=== PATIENT | female | born 1990 | race Caucasian/White ===

== ENCOUNTER 2022-06-23 10:55 | Emergency (ER) | payer MEDICAID, SELFPAY ==
[2022-06-23] VITALS (11 sets, daily range): BP systolic 112–130; BP diastolic 79–94; PULSE 93–111; RESP 18–37; TEMP 36.5; O2SAT 100
--- NOTE | ~2022-06-23 | XR_ITS ---
EXAMINATION: XR chest 2V 06/23/2022 12:36 INDICATION: Altered mental status PROCEDURE: 2 view chest COMPARISON: No prior studies for comparison. FINDINGS: The lungs are clear. The cardiomediastinal silhouette is within normal limits. There are no pleural effusions. There is no pneumothorax suspected. IMPRESSION: 1: NO ACUTE CARDIOPULMONARY DISEASE. Reviewed, dictated and finalized at location A. TRICAL TROUBLESHOOTER
--- NOTE | ~2022-06-23 | XR_ITS ---
XR thoracic spine 3V 06/23/2022 14:08 Indication: Back pain Procedure: 4 views thoracic spine Comparison: No prior studies for comparison. Findings: Vertebral body heights are maintained. There is mild levoscoliosis. No acute fracture or tr aumatic malalignment. No paraspinal soft tissue abnormality. Impression: 1: No acute abnormality of the thoracic spine. Reviewed, dictated and finalized at location A. MAKER Impression: 1: No acute abnormality of the thoracic spine.
--- NOTE | ~2022-06-23 | CT_ITS ---
EXAMINATION: CT BRAIN W/O DATE: 06/23/2022 12:32 INDICATION: Altered mental status. Possible seizures. TECHNIQUE: Computed tomography (CT) of the head was performed without intravenous contrast. The dose- length product was 605.33 mGy-cm. Automated exposure control and iterative reconstruction technique w ere employed. COMPARISON: No prior studies for comparison. FINDINGS: Normal brain parenchymal volume for age. Normal mckenzie-white differentiation. No acute intrac ranial hemorrhage, infarction, mass or mass effect. There is a chronic lacunar infarction of the left caudate nucleus. No ventriculomegaly or midline shift. Midline sagittal images demonstrate a normal corpus callosum, c raniovertebral junction and sella turcica. Basilar cisterns are patent. Paranasal sinuses and mastoids are pneumatized. No depressed skull fractures. IMPRESSION: 1. No acute intracranial abnormality. 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 Reviewed, dictated and finalized at location A. D TAX AUDITOR
--- NOTE | 2022-06-23 11:07 | ECG_ITS ---
Measurements Intervals [place] Rate: 106 P: 47 NE: 165 QRS: 78 QRSD: 88 T: 57 QT: 343 QTc: 457 Interpretive Statements SINUS TACHYCARDIA NONSPECIFIC T-WAVE ABNORMALITY BORDERLINE ECG NO PREVIOUS ECG AVAILABLE FOR COMPARISON Electronically Signed On 06-23-2022 16:55:28 AUTO TRANSMISSION MECHANIC by Olman Alfonso M.D.
[2022-06-23 11:25] LABS: Basophils Absolute Auto 0.1 K/mm3 (0.0-0.1); Eosinophils Absolute Auto 0.2 K/mm3 (0-0.3); Hematocrit 35.1 % (37.0-47.0); Hemoglobin 11.3 g/dL (12.0-15.0); Immature Granulocyte Absolute 0.01 K/mm3 (0.00-0.031); Immature Granulocyte Percent A 0.2 % (0-0.5); Lymphocytes Absolute Auto 1.28 K/mm3 (0.9-3.2); Lymphocytes Percent Auto 21.5 % (18.3-44.2); Mean Corpuscular HGB Conc 32.2 g/dl (32-36); Mean Corpuscular Hemoglobin 28.4 pg (26-34); Mean Corpuscular Volume 88.2 fl (80-100); Mean Platelet Volume 10.7 fl (7.4-10.4); Monocytes Absolute Auto 0.8 K/mm3 (0.1-0.6); Monocytes Percent Auto 13.6 % (2.6-8.5); Neutrophils Absolute Auto 3.6 K/mm3 (1.3-6.7); Neutrophils Percent Auto 60.7 % (45.5-73.1); Platelet Count Result 397 k/mm3 (150-375); Red Blood Count 3.98 M/mm3 (4.2-5.4); Red Cell Distribution Width 14.3 % (11.5-14.5)
[2022-06-23] MEDS: SODIUM CHLORIDE 0.9% IV 1,000 ML 999 ML IV CONT ×2 (11:27→14:15)
[2022-06-23 11:35] LABS: INR 1.1; Prothrombin Time 13.6 Seconds (11.1-14.7)
[2022-06-23 11:36] LABS: Appearance Urine Clear (Clear); Bilirubin Urine Negative (Negative); Blood Urine Negative (Negative); Color Urine Yellow (Yellow); Glucose Urine UA Negative (Negative); Ketones Urine Trace mg/dL (Negative); Leukocyte Esterase Ur Negative LEU/UL (Negative); Nitrate Urine Negative (Negative); Protein Urine Trace mg/dL (Negative)
[2022-06-23 11:36] LABS: Partial Thromboplastin Time 31.4 SECONDS (22.3-36.8)
[2022-06-23 11:40] LABS: Bacteria Urine Trace /hpf; Mucus Urine Rare /lpf; RBC Urine 0-2 /hpf (0-2); Squamous Epithelial Cell Urine Moderate /hpf (Few)
[2022-06-23 11:41] LABS: Magnesium 1.9 mg/dL (1.6-2.3)
[2022-06-23 11:41] LABS: Alanine Aminotransferase 30 U/L (6-35); Albumin Level 5.1 g/dL (3.5-5.1); Alkaline Phosphatase 67 U/L (38-126); Anion Gap 11 mmol/L (8-16); Aspartate Amino Transferase 28 U/L (14-36); Bilirubin,Total 0.5 mg/dL (0.2-1.3); Blood Urea Nitrogen 12 mg/dL (7-17); Calcium 9.5 mg/dL (8.4-10.2); Carbon Dioxide 24 mmol/L (22-30); Chloride 106 mmol/L (98-107); Estimated Glomerular Filt Rate > 60; Glucose 112 mg/dL (65-110); Potassium 3.3 mmol/L (3.4-5.0); Sodium 141 mmol/L (137-145)
[2022-06-23 11:44] LABS: Add Urine Microscopic? YES
--- NOTE | 2022-06-23 11:46 | PC.NURSE ---
Pt agreeable to speak with police. Pt discussed with this RN she is afraid to get in trouble for coming to the hospital. Pt tearful and states she is scared to get in trouble for coming and she did not intend to cause no trouble, because they arent gonna like that. Pt informed PD is here and would like to ask her questions. This RN encouraged pt to speak honestly to PD about her living situation so she can get the help she needs and to a safe place. Pt agreeable to speak to PD and PD in ER were notified. Pt moved to room 13 for privacy.
--- NOTE | 2022-06-23 11:46 | PC.NURSE ---
PD is in room at this time to speak with pt.
[2022-06-23 11:50] LABS: Troponin I < 0.012 ng/mL (0.000-0.034)
--- NOTE | 2022-06-23 11:50 | PC.NURSE ---
PD at bedside at this time to speak with patient.
[2022-06-23 12:09] LABS: Amphetamine Screen Urine Negative (Negative); Barbiturate Screen Urine Negative (Negative); Benzodiazepines Screen Urine Negative (Negative); Cannabinoid Screen Urine Negative (Negative); Cocaine Screen Urine Negative (Negative); Methadone Screen Urine Negative (Negative); Opiate Screen Urine Negative (Negative); Phencyclidine Screen Urine Negative (Negative)
[2022-06-23 12:10] LABS: Influenza A QL RT-PCR Negative (Negative); Influenza B QL RT-PCR Negative (Negative); SARS-CoV-2 RNA PCR Negative
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
[2022-06-23 14:22] LABS: Reflex Lactic Acid Yes or No Add Lactic
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
[2022-06-23 16:06] LABS: Lactic Acid 0.9 mmol/L (0.7-2.0)
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
== END 2022-06-23 18:52 | disposition home or self-care (01) ==
PROVIDERS: Emergency Provider Physician Assistant
DX: R41.0 Disorientation, unspecified (principal); G40.909 Epilepsy, unspecified, not intractable, without status epilepticus; Z20.822 Contact with and (suspected) exposure to COVID-19; R00.0 Tachycardia, unspecified; R94.31 Abnormal electrocardiogram [ECG] [EKG]
CPT/HCPCS: 36415; 51701; 70450; 71046; 72072; 80053; 80307; 81001; 81025; 83605; 83735; 84484; 85025; 85610; 85730; 87086; 87088; 87636; 93005; 96361; 96365; 99284; J0131; J7030